=== PATIENT | male | born 1955 | race Two or more races ===

== ENCOUNTER 2018-02-09 14:32 | Inpatient (IN) | payer MEDICARE, OTHER ==
[~2018-02-09] VITALS: Ht 165.1 cm; Wt 81.0 kg
[2018-02-09] MEDS ORDERED: SODIUM CHLORIDE 0.9% 500 ML IVB ONE (14:43)
[2018-02-09] MEDS ORDERED: PANTOPRAZOLE 40 MG/10 ML VIAL IV STA (14:43)
[2018-02-09 16:20] LABS: Albumin 3.7 g/dL (3.4-5.0); BUN/Creatinine Ratio 11.3; Bilirubin, Total 2.4 mg/dL (0.2-1.0); Calcium 8.8 mg/dL (8.5-10.1); Magnesium 2.1 mg/dL (1.6-2.6); Potassium 3.5 mmol/L (3.5-5.1); Total Protein 7.4 g/dL (6.4-8.2)
[2018-02-09 17:35] LABS: Basophils # (auto) 0 uL; Basophils % (auto) 0.2 % (0.0-2.0); Eosinophils # (auto) 0 uL; Eosinophils % (auto) 0.3 % (0.0-7.0); Hematocrit 42.7 % (41.0-53.0); Hemoglobin 14.1 g/dL (13.5-17.5); Lymphocytes # (auto) 0.5 uL; Lymphocytes % (auto) 4.5 % (10.0-50.0); Mean Corpuscular Hemoglobin 28.8 pg (28.0-32.0); Mean Corpuscular Hgb Conc. 33.1 g/dL (32.0-36.0); Mean Corpuscular Volume 87.1 fL (80.0-100.0); Monocytes # (auto) 0.3 uL; Monocytes % (auto) 2.5 % (0.0-12.0); Neutrophils # (auto) 10.4 uL; Neutrophils % (auto) 92.5 % (37.0-80.0); Platelet Count (auto) 224 10^3/uL (140-450); Red Cell Distribution Width 15.4 % (11.8-14.3); White Blood Cell 11.2 10^3/uL (4.4-10.8)
[2018-02-09] MEDS ORDERED: ONDANSETRON HCL 4 MG/2 ML VIAL IV ONE (19:30)
[2018-02-09] MEDS ORDERED: HYDROmorphone HCL 2 MG/ML VL IV ONE (19:30)
[2018-02-09] MEDS ORDERED: D5W/SOD CHL 0.45% 1,000 ML IV ONE (19:45)
[2018-02-09] MEDS ORDERED: ONDANSETRON HCL 4 MG/2 ML VIAL IV SCH (20:00)
[2018-02-09] MEDS ORDERED: HYDROcodone-ACET 10/325MG TAB PO ONE (20:15)
[2018-02-09 21:30] VITALS: BP 128/71
[2018-02-09] MEDS ORDERED: DEXTROSE (50%) 50ML SYRG IV PRN (21:30)
[2018-02-09] MEDS: metFORMIN HYDROCHLORIDE 500 MG TAB PO SCH (22:47)
[2018-02-09] MEDS: MORPHINE SULF INJ 2 MG/ML SYRINGE 1ML IV PRN (22:50)
[2018-02-09 22:51] VITALS: BP 128/71
[2018-02-09] MEDS ORDERED: ASPI81TA27 PO (23:09)
[2018-02-09] MEDS ORDERED: METF-370 PO (23:09)
[2018-02-10] MEDS: ACCU-CHEK COMFORT CURVE STRIP VI SCH ×6 (00:10→20:00)
[2018-02-10] MEDS: InsuLIN REG 1unit/0.01ml Soln (100units/ml) SC SCH ×6 (00:11→20:00)
[2018-02-10] MEDS ORDERED: ONDANSETRON HCL 4 MG/2 ML VIAL IV PRN (02:00)
[2018-02-10 04:51] VITALS: BP 139/68
[2018-02-10 06:02] LABS: Basophils # (auto) 0 uL; Basophils % (auto) 0.3 % (0.0-2.0); Eosinophils # (auto) 0.2 uL; Eosinophils % (auto) 1.8 % (0.0-7.0); Hematocrit 38.9 % (41.0-53.0); Hemoglobin 13.2 g/dL (13.5-17.5); Lymphocytes # (auto) 1.1 uL; Lymphocytes % (auto) 10.5 % (10.0-50.0); Mean Corpuscular Hemoglobin 29.6 pg (28.0-32.0); Mean Corpuscular Hgb Conc. 33.9 g/dL (32.0-36.0); Mean Corpuscular Volume 87.4 fL (80.0-100.0); Monocytes # (auto) 0.6 uL; Monocytes % (auto) 6.3 % (0.0-12.0); Neutrophils # (auto) 8.2 uL; Neutrophils % (auto) 81.1 % (37.0-80.0); Nucleated Red Blood Cells % 0.1 %; Platelet Count (auto) 217 10^3/uL (140-450); Red Blood Cells 4.45 10^6/uL (4.5-5.90); Red Cell Distribution Width 15.2 % (11.8-14.3); White Blood Cell 10.1 10^3/uL (4.4-10.8)
[2018-02-10 06:15] LABS: Albumin 3.1 g/dL (3.4-5.0); BUN/Creatinine Ratio 12.2; Calcium 8.4 mg/dL (8.5-10.1); Potassium 3.8 mmol/L (3.5-5.1)
[2018-02-10 06:18] LABS: Bilirubin, Total 5.2 mg/dL (0.2-1.0)
[2018-02-10] MEDS: INSULIN LANTUS (GLARGINE) 1 /0.01ml (100units/ml) SC SCH (06:23)
[2018-02-10] MEDS: amLODIPine BESYLATE 5 MG TAB PO SCH (08:18)
[2018-02-10] MEDS: HCTZ 25 MG TAB PO SCH (08:19)
[2018-02-10] MEDS: metFORMIN HYDROCHLORIDE 500 MG TAB PO SCH ×2 (08:19→18:00)
[2018-02-10] MEDS: PANTOPRAZOLE 40 MG TAB PO SCH (08:20)
[2018-02-10 09:40] VITALS: BP 135/67
[2018-02-10] MEDS: LISINOPRIL 10 MG TAB PO SCH (10:00)
[2018-02-10 13:24] VITALS: BP 128/68
[2018-02-10 14:14] LABS: Hepatitis A Ab IgM Negative; Hepatitis B Core IgM Negative; Hepatitis B Surface Antigen Negative (Negative)
[2018-02-10 16:44] VITALS: BP 146/77
[2018-02-10 17:55] LABS: Hepatitis C Antibody Negative (Negative)
[2018-02-10 21:30] VITALS: BP 140/75
[2018-02-11] MEDS: ACCU-CHEK COMFORT CURVE STRIP VI SCH ×7 (00:18→23:32)
[2018-02-11] MEDS: InsuLIN REG 1unit/0.01ml Soln (100units/ml) SC SCH ×7 (00:19→23:33)
[2018-02-11] MEDS: MORPHINE SULF INJ 2 MG/ML SYRINGE 1ML IV PRN (04:31)
[2018-02-11 05:00] VITALS: BP 134/81
[2018-02-11] MEDS: INSULIN LANTUS (GLARGINE) 1 /0.01ml (100units/ml) SC SCH (06:48)
[2018-02-11 07:04] LABS: Potassium 3.4 mmol/L (3.5-5.1)
[2018-02-11 07:12] LABS: Albumin 3.3 g/dL (3.4-5.0); BUN/Creatinine Ratio 10.4; Bilirubin, Total 2.7 mg/dL (0.2-1.0); Calcium 8.9 mg/dL (8.5-10.1); Total Protein 7.6 g/dL (6.4-8.2)
[2018-02-11] MEDS: metFORMIN HYDROCHLORIDE 500 MG TAB PO SCH ×2 (08:00→18:00)
[2018-02-11] MEDS ORDERED: POTASSIUM CHL 10% (20 MEQ/15ML) 15ml ORAL SOLN PO ONE (08:45)
[2018-02-11 09:12] VITALS: BP 141/80
[2018-02-11] MEDS: amLODIPine BESYLATE 5 MG TAB PO SCH (10:00)
[2018-02-11] MEDS: PANTOPRAZOLE 40 MG TAB PO SCH (10:00)
[2018-02-11] MEDS: HCTZ 25 MG TAB PO SCH (10:00)
[2018-02-11] MEDS: LISINOPRIL 10 MG TAB PO SCH (10:00)
[2018-02-11 12:46] VITALS: BP 129/74
[2018-02-11] MEDS: HYDROcodone-ACET 10/325MG TAB PO PRN (15:37)
[2018-02-11 17:33] VITALS: BP 124/70
[2018-02-11 21:30] VITALS: BP 114/72
[2018-02-12] MEDS: ACCU-CHEK COMFORT CURVE STRIP VI SCH ×5 (04:16→20:01)
[2018-02-12] MEDS: InsuLIN REG 1unit/0.01ml Soln (100units/ml) SC SCH ×5 (04:16→20:02)
[2018-02-12 05:00] VITALS: BP 129/67
[2018-02-12] MEDS: INSULIN LANTUS (GLARGINE) 1 /0.01ml (100units/ml) SC SCH ×2 (05:51→12:55)
[2018-02-12 06:33] LABS: Potassium 3.7 mmol/L (3.5-5.1)
[2018-02-12 06:41] LABS: Albumin 3.2 g/dL (3.4-5.0); BUN/Creatinine Ratio 14.1; Calcium 8.8 mg/dL (8.5-10.1)
[2018-02-12 06:43] LABS: Bilirubin, Total 1.8 mg/dL (0.2-1.0); Total Protein 7.6 g/dL (6.4-8.2)
[2018-02-12] MEDS: metFORMIN HYDROCHLORIDE 500 MG TAB PO SCH ×2 (08:00→18:00)
[2018-02-12 09:00] VITALS: BP 138/75
[2018-02-12] MEDS: ENOXAPARIN SOD 40 MG/0.4 ML SYRINGE SC SCH (10:00)
[2018-02-12] MEDS: HCTZ 25 MG TAB PO SCH (12:51)
[2018-02-12] MEDS: PANTOPRAZOLE 40 MG TAB PO SCH (12:52)
[2018-02-12] MEDS: LISINOPRIL 10 MG TAB PO SCH (12:52)
[2018-02-12] MEDS: amLODIPine BESYLATE 5 MG TAB PO SCH (12:52)
[2018-02-12] MEDS: HYDROcodone-ACET 10/325MG TAB PO PRN ×2 (12:53→20:01)
[2018-02-12 13:00] VITALS: BP 129/77
[2018-02-12 17:44] VITALS: BP 116/74
[2018-02-12 22:00] VITALS: BP 120/75
[2018-02-13] MEDS: ACCU-CHEK COMFORT CURVE STRIP VI SCH ×6 (00:02→20:18)
[2018-02-13] MEDS: InsuLIN REG 1unit/0.01ml Soln (100units/ml) SC SCH ×6 (00:02→20:18)
[2018-02-13 05:00] VITALS: BP 121/73
[2018-02-13 06:42] LABS: Albumin 3.1 g/dL (3.4-5.0); Calcium 8.7 mg/dL (8.5-10.1); Potassium 3.9 mmol/L (3.5-5.1)
[2018-02-13 06:45] LABS: BUN/Creatinine Ratio 13.8
[2018-02-13 06:48] LABS: Bilirubin, Total 1.5 mg/dL (0.2-1.0); Total Protein 7.8 g/dL (6.4-8.2)
[2018-02-13] MEDS: metFORMIN HYDROCHLORIDE 500 MG TAB PO SCH ×2 (08:36→17:50)
[2018-02-13 09:00] VITALS: BP 122/66
[2018-02-13] MEDS: HCTZ 25 MG TAB PO SCH (10:37)
[2018-02-13] MEDS: amLODIPine BESYLATE 5 MG TAB PO SCH (10:38)
[2018-02-13] MEDS: LISINOPRIL 10 MG TAB PO SCH (10:39)
[2018-02-13] MEDS: PANTOPRAZOLE 40 MG TAB PO SCH (10:39)
[2018-02-13] MEDS: ENOXAPARIN SOD 40 MG/0.4 ML SYRINGE SC SCH (10:39)
[2018-02-13 12:56] VITALS: BP 127/71
[2018-02-13 13:40] LABS: INR 0.96 (0.9-1.15); Partial Thromboplastin Time 29.9 sec (23.78-33.04); Prothrombin Time 10.3 sec (9.27-12.13)
[2018-02-13 16:52] VITALS: BP 118/72
[2018-02-13 22:01] VITALS: BP 121/69
[2018-02-14] MEDS: ACCU-CHEK COMFORT CURVE STRIP VI SCH ×7 (00:06→23:31)
[2018-02-14] MEDS: InsuLIN REG 1unit/0.01ml Soln (100units/ml) SC SCH ×7 (00:06→23:31)
[2018-02-14 04:42] VITALS: BP 124/73
[2018-02-14] MEDS: INSULIN LANTUS (GLARGINE) 1 /0.01ml (100units/ml) SC SCH (06:24)
[2018-02-14] MEDS: metFORMIN HYDROCHLORIDE 500 MG TAB PO SCH ×2 (07:55→17:32)
[2018-02-14 09:00] VITALS: BP 130/75
[2018-02-14] MEDS: LISINOPRIL 10 MG TAB PO SCH (09:29)
[2018-02-14] MEDS: amLODIPine BESYLATE 5 MG TAB PO SCH (09:29)
[2018-02-14] MEDS: PANTOPRAZOLE 40 MG TAB PO SCH (09:30)
[2018-02-14] MEDS: HCTZ 25 MG TAB PO SCH (09:30)
[2018-02-14 13:00] VITALS: BP 124/71
[2018-02-14 17:00] VITALS: BP 139/80
[2018-02-14] MEDS: HYDROcodone-ACET 10/325MG TAB PO PRN (19:18)
[2018-02-14 21:52] VITALS: BP 125/68
[2018-02-15] MEDS: HYDROcodone-ACET 10/325MG TAB PO PRN ×2 (04:14→20:59)
[2018-02-15] MEDS: ACCU-CHEK COMFORT CURVE STRIP VI SCH ×5 (04:15→21:43)
[2018-02-15] MEDS: InsuLIN REG 1unit/0.01ml Soln (100units/ml) SC SCH ×5 (04:15→21:43)
[2018-02-15 04:49] VITALS: BP 123/71
[2018-02-15] MEDS: INSULIN LANTUS (GLARGINE) 1 /0.01ml (100units/ml) SC SCH (06:55)
[2018-02-15] MEDS: metFORMIN HYDROCHLORIDE 500 MG TAB PO SCH ×2 (07:43→18:33)
[2018-02-15] MEDS: amLODIPine BESYLATE 5 MG TAB PO SCH (09:06)
[2018-02-15] MEDS: LISINOPRIL 10 MG TAB PO SCH (09:07)
[2018-02-15] MEDS: HCTZ 25 MG TAB PO SCH (09:07)
[2018-02-15] MEDS: PANTOPRAZOLE 40 MG TAB PO SCH (09:08)
[2018-02-15 09:55] VITALS: BP 138/72
[2018-02-15 12:18] VITALS: BP 126/76
[2018-02-15 17:25] VITALS: BP 106/66
[2018-02-15 22:00] VITALS: BP 127/66
[2018-02-16] MEDS: ACCU-CHEK COMFORT CURVE STRIP VI SCH ×7 (01:08→23:17)
[2018-02-16] MEDS: HYDROcodone-ACET 10/325MG TAB PO PRN (01:09)
[2018-02-16] MEDS: InsuLIN REG 1unit/0.01ml Soln (100units/ml) SC SCH ×7 (04:00→23:16)
[2018-02-16 04:57] VITALS: BP 111/65
[2018-02-16] MEDS: INSULIN LANTUS (GLARGINE) 1 /0.01ml (100units/ml) SC SCH (05:29)
[2018-02-16 06:46] LABS: Basophils # (auto) 0 uL; Basophils % (auto) 0.6 % (0.0-2.0); Eosinophils # (auto) 0.4 uL; Eosinophils % (auto) 6.1 % (0.0-7.0); Hemoglobin 14.7 g/dL (13.5-17.5); Lymphocytes # (auto) 2.4 uL; Lymphocytes % (auto) 36.1 % (10.0-50.0); Mean Corpuscular Hemoglobin 29.3 pg (28.0-32.0); Mean Corpuscular Hgb Conc. 33.3 g/dL (32.0-36.0); Monocytes # (auto) 0.5 uL; Monocytes % (auto) 7.6 % (0.0-12.0); Neutrophils # (auto) 3.3 uL; Neutrophils % (auto) 49.6 % (37.0-80.0); Nucleated Red Blood Cells % 0.1 %; Platelet Count (auto) 340 10^3/uL (140-450); Red Cell Distribution Width 14.9 % (11.8-14.3); White Blood Cell 6.7 10^3/uL (4.4-10.8)
[2018-02-16 07:06] LABS: Potassium 3.7 mmol/L (3.5-5.1)
[2018-02-16 07:10] LABS: Albumin 3.4 g/dL (3.4-5.0); BUN/Creatinine Ratio 26.4; Calcium 8.6 mg/dL (8.5-10.1)
[2018-02-16 07:12] LABS: Total Protein 7.6 g/dL (6.4-8.2)
[2018-02-16] MEDS: metFORMIN HYDROCHLORIDE 500 MG TAB PO SCH ×2 (08:00→17:49)
[2018-02-16 08:56] VITALS: BP 123/71
[2018-02-16] MEDS: PANTOPRAZOLE 40 MG TAB PO SCH (10:00)
[2018-02-16] MEDS: amLODIPine BESYLATE 5 MG TAB PO SCH (10:00)
[2018-02-16] MEDS: HCTZ 25 MG TAB PO SCH (10:00)
[2018-02-16] MEDS: LISINOPRIL 10 MG TAB PO SCH (10:00)
[2018-02-16] MEDS ORDERED: MEPERIDINE HCL (50 MG/ML) 1 ML VIAL ONE (10:17)
[2018-02-16] MEDS ORDERED: MIDAZOLAM HCL 1MG/1ML-2 ML VIAL ONE (10:17)
[2018-02-16] MEDS ORDERED: fentaNYL CITRATE 100 MCG/2 ML VL ONE (10:17)
[2018-02-16] MEDS ORDERED: IOHEXOL 300 MG/ML 100ML BOTTLE IJ ONE (10:19)
[2018-02-16] MEDS ORDERED: SUCCINYLCHOLINE CHLORIDE 20 MG/ML 10ML VIAL IV ONE (10:19)
[2018-02-16] MEDS ORDERED: ONDANSETRON HCL 4 MG/2 ML VIAL IV ONE (10:45)
[2018-02-16] MEDS ORDERED: KETOROLAC TROMETH 30 MG/ML 1ML VIAL IV ONE (10:45)
[2018-02-16] MEDS ORDERED: ePHEDrine SULFATE 50 MG/ML AMP IV PRN (10:45)
[2018-02-16] MEDS ORDERED: LABETALOL HCL 5 MG/ML 4ML SYRINGE IV PRN (10:45)
[2018-02-16] MEDS ORDERED: HYDROmorphone HCL 2 MG/ML VL IV PRN (10:45)
[2018-02-16] MEDS ORDERED: MIDAZOLAM HCL 1MG/1ML-2 ML VIAL IV PRN (10:45)
[2018-02-16] MEDS ORDERED: MORPHINE SULFATE 8mg/ml INJ SDV IV PRN (10:45)
[2018-02-16] MEDS ORDERED: ETOMIDATE (2MG/ML) 20ML VIAL IV ONE (11:36)
[2018-02-16] MEDS ORDERED: DEXAMETHASONE SOD PHOS 10MG/1ML VIAL INJ ONE (11:36)
[2018-02-16] MEDS ORDERED: MORPHINE SULFATE 8mg/ml INJ SDV IV ONE (12:00)
[2018-02-16 17:53] VITALS: BP 125/70
[2018-02-16 22:00] VITALS: BP 130/77
[2018-02-17] MEDS: InsuLIN REG 1unit/0.01ml Soln (100units/ml) SC SCH ×5 (04:21→20:29)
[2018-02-17] MEDS: ACCU-CHEK COMFORT CURVE STRIP VI SCH ×5 (04:22→20:29)
[2018-02-17 05:00] VITALS: BP 133/73
[2018-02-17 05:46] LABS: Basophils # (auto) 0 uL; Basophils % (auto) 0.2 % (0.0-2.0); Eosinophils # (auto) 0 uL; Hematocrit 41.7 % (41.0-53.0); Hemoglobin 14.2 g/dL (13.5-17.5); Lymphocytes % (auto) 11.2 % (10.0-50.0); Mean Corpuscular Hemoglobin 29.6 pg (28.0-32.0); Mean Corpuscular Hgb Conc. 33.9 g/dL (32.0-36.0); Mean Corpuscular Volume 87.2 fL (80.0-100.0); Monocytes # (auto) 0.4 uL; Monocytes % (auto) 4.1 % (0.0-12.0); Neutrophils # (auto) 7.5 uL; Neutrophils % (auto) 84.5 % (37.0-80.0); Nucleated Red Blood Cells % 0.1 %; Platelet Count (auto) 363 10^3/uL (140-450); Red Blood Cells 4.78 10^6/uL (4.5-5.90); Red Cell Distribution Width 14.4 % (11.8-14.3); White Blood Cell 8.9 10^3/uL (4.4-10.8)
[2018-02-17 05:55] LABS: Albumin 3.2 g/dL (3.4-5.0); BUN/Creatinine Ratio 28.6; Calcium 8.2 mg/dL (8.5-10.1); Potassium 4.4 mmol/L (3.5-5.1)
[2018-02-17 05:56] LABS: INR 0.96 (0.9-1.15); Partial Thromboplastin Time 25.7 sec (23.78-33.04); Prothrombin Time 10.3 sec (9.27-12.13)
[2018-02-17 05:58] LABS: Bilirubin, Total 1.1 mg/dL (0.2-1.0); Total Protein 7.4 g/dL (6.4-8.2)
[2018-02-17] MEDS: INSULIN LANTUS (GLARGINE) 1 /0.01ml (100units/ml) SC SCH (06:27)
[2018-02-17 08:00] VITALS: BP 135/67
[2018-02-17] MEDS: metFORMIN HYDROCHLORIDE 500 MG TAB PO SCH ×2 (08:00→17:51)
[2018-02-17] MEDS: HCTZ 25 MG TAB PO SCH (08:19)
[2018-02-17] MEDS: PANTOPRAZOLE 40 MG TAB PO SCH (08:19)
[2018-02-17] MEDS: amLODIPine BESYLATE 5 MG TAB PO SCH (08:19)
[2018-02-17] MEDS: LISINOPRIL 10 MG TAB PO SCH (08:20)
[2018-02-17 12:00] VITALS: BP 119/60
[2018-02-17] MEDS ORDERED: ETOMIDATE (2MG/ML) 20ML VIAL IV ONE (12:34)
[2018-02-17] MEDS ORDERED: LIDOCAINE 1% (LOCAL ANESTH.) PF 5ml SDV ONE (12:39)
[2018-02-17] MEDS ORDERED: SUCCINYLCHOLINE CHLORIDE 20 MG/ML 10ML VIAL IV ONE (12:40)
[2018-02-17] MEDS ORDERED: ceFAZolin 1GM/50ML 50 ML IV ONE (13:28)
[2018-02-17] MEDS ORDERED: MIDAZOLAM HCL 1MG/1ML-2 ML VIAL ONE (13:54)
[2018-02-17] MEDS ORDERED: fentaNYL CITRATE 100 MCG/2 ML VL ONE ×2 (14:12→15:26)
[2018-02-17] MEDS ORDERED: ACCU-CHEK COMFORT CURVE STRIP VI ONE (14:15)
[2018-02-17] MEDS ORDERED: hydrALAZINE HCL 20 MG/ML VL IV PRN (14:15)
[2018-02-17] MEDS ORDERED: ONDANSETRON HCL 4 MG/2 ML VIAL IV ONE (14:15)
[2018-02-17] MEDS ORDERED: KETOROLAC TROMETH 30 MG/ML 1ML VIAL ONE (14:17)
[2018-02-17] MEDS ORDERED: GLYCOPYRROLATE 0.2 MG/ML 1ML VIAL ONE ×2 (14:37)
[2018-02-17] MEDS ORDERED: NEOSTIGMINE 1 MG/ML INJ (10mg/10ML VIAL) ONE (14:37)
[2018-02-17] MEDS: MORPHINE SULF INJ 2 MG/ML SYRINGE 1ML IV PRN (20:07)
[2018-02-17 22:00] VITALS: BP 119/74
[2018-02-18] MEDS: HYDROcodone-ACET 10/325MG TAB PO PRN ×2 (00:12→08:24)
[2018-02-18] MEDS: ACCU-CHEK COMFORT CURVE STRIP VI SCH ×6 (00:12→19:48)
[2018-02-18] MEDS: InsuLIN REG 1unit/0.01ml Soln (100units/ml) SC SCH ×6 (00:12→19:48)
[2018-02-18 05:01] VITALS: BP 119/71
[2018-02-18] MEDS: INSULIN LANTUS (GLARGINE) 1 /0.01ml (100units/ml) SC SCH (06:23)
[2018-02-18 06:54] LABS: Potassium 4.1 mmol/L (3.5-5.1)
[2018-02-18 07:11] LABS: Albumin 3.2 g/dL (3.4-5.0); BUN/Creatinine Ratio 26.5; Calcium 8.1 mg/dL (8.5-10.1)
[2018-02-18 07:14] LABS: Bilirubin, Total 1.4 mg/dL (0.2-1.0); Total Protein 7.3 g/dL (6.4-8.2)
[2018-02-18] MEDS: metFORMIN HYDROCHLORIDE 500 MG TAB PO SCH ×2 (08:23→16:51)
[2018-02-18 08:40] VITALS: BP 130/76
[2018-02-18] MEDS: ENOXAPARIN SOD 40 MG/0.4 ML SYRINGE SC SCH (09:57)
[2018-02-18] MEDS: HCTZ 25 MG TAB PO SCH (09:57)
[2018-02-18] MEDS: PANTOPRAZOLE 40 MG TAB PO SCH (09:58)
[2018-02-18] MEDS: LISINOPRIL 10 MG TAB PO SCH (09:58)
[2018-02-18] MEDS: amLODIPine BESYLATE 5 MG TAB PO SCH (09:59)
[2018-02-18] MEDS ORDERED: fentaNYL CITRATE 100 MCG/2 ML VL IV ONE (10:00)
[2018-02-18 13:00] VITALS: BP 132/80
[2018-02-18 17:00] VITALS: BP 135/75
[2018-02-18 22:00] VITALS: BP 133/76
[2018-02-19] MEDS: ACCU-CHEK COMFORT CURVE STRIP VI SCH ×6 (00:16→20:25)
[2018-02-19] MEDS: InsuLIN REG 1unit/0.01ml Soln (100units/ml) SC SCH ×6 (00:16→20:25)
[2018-02-19 05:30] VITALS: BP 124/70
[2018-02-19 06:35] LABS: Albumin 2.8 g/dL (3.4-5.0); BUN/Creatinine Ratio 24.1; Potassium 3.5 mmol/L (3.5-5.1)
[2018-02-19] MEDS: INSULIN LANTUS (GLARGINE) 1 /0.01ml (100units/ml) SC SCH (06:42)
[2018-02-19 06:45] LABS: Bilirubin, Total 1.6 mg/dL (0.2-1.0); Total Protein 6.8 g/dL (6.4-8.2)
[2018-02-19] MEDS: metFORMIN HYDROCHLORIDE 500 MG TAB PO SCH ×2 (08:26→17:38)
[2018-02-19] MEDS: LISINOPRIL 10 MG TAB PO SCH (10:00)
[2018-02-19] MEDS: amLODIPine BESYLATE 5 MG TAB PO SCH (10:07)
[2018-02-19] MEDS: PANTOPRAZOLE 40 MG TAB PO SCH (10:07)
[2018-02-19] MEDS: ENOXAPARIN SOD 40 MG/0.4 ML SYRINGE SC SCH (10:08)
[2018-02-19] MEDS: HCTZ 25 MG TAB PO SCH (10:09)
[2018-02-19 10:22] VITALS: BP 122/69
[2018-02-19 12:53] VITALS: BP 121/71
[2018-02-19] MEDS: HYDROcodone-ACET 10/325MG TAB PO PRN (13:34)
[2018-02-19 14:32] LABS: Basophils # (auto) 0 uL; Basophils % (auto) 0.2 % (0.0-2.0); Eosinophils # (auto) 0 uL; Hematocrit 38.6 % (41.0-53.0); Lymphocytes # (auto) 0.9 uL; Lymphocytes % (auto) 6.1 % (10.0-50.0); Mean Corpuscular Hemoglobin 29.3 pg (28.0-32.0); Mean Corpuscular Hgb Conc. 33.6 g/dL (32.0-36.0); Mean Corpuscular Volume 87.2 fL (80.0-100.0); Monocytes # (auto) 0.8 uL; Monocytes % (auto) 5.6 % (0.0-12.0); Neutrophils # (auto) 13.2 uL; Neutrophils % (auto) 88.1 % (37.0-80.0); Platelet Count (auto) 309 10^3/uL (140-450); Red Blood Cells 4.43 10^6/uL (4.5-5.90); Red Cell Distribution Width 14.9 % (11.8-14.3)
[2018-02-19] MEDS: LEVOFLOXACIN 500MG 100 ML IV SCH (15:38)
[2018-02-19] MEDS: metroNIDAZOLE 500MG/100ML 100 ML IV SCH (17:37)
[2018-02-19 22:00] VITALS: BP 125/79
[2018-02-20] MEDS: ACCU-CHEK COMFORT CURVE STRIP VI SCH ×7 (00:21→23:56)
[2018-02-20] MEDS: metroNIDAZOLE 500MG/100ML 100 ML IV SCH ×4 (00:21→23:48)
[2018-02-20] MEDS: InsuLIN REG 1unit/0.01ml Soln (100units/ml) SC SCH ×6 (00:21→20:24)
[2018-02-20 05:30] VITALS: BP 128/71
[2018-02-20] MEDS: INSULIN LANTUS (GLARGINE) 1 /0.01ml (100units/ml) SC SCH (06:44)
[2018-02-20] MEDS: metFORMIN HYDROCHLORIDE 500 MG TAB PO SCH ×2 (07:34→18:00)
[2018-02-20 07:49] LABS: Basophils # (auto) 0 uL; Basophils % (auto) 0.2 % (0.0-2.0); Eosinophils # (auto) 0.1 uL; Eosinophils % (auto) 0.6 % (0.0-7.0); Hematocrit 36.1 % (41.0-53.0); Hemoglobin 12.4 g/dL (13.5-17.5); Lymphocytes # (auto) 1.2 uL; Lymphocytes % (auto) 10.2 % (10.0-50.0); Mean Corpuscular Hemoglobin 29.8 pg (28.0-32.0); Mean Corpuscular Hgb Conc. 34.3 g/dL (32.0-36.0); Mean Corpuscular Volume 87.1 fL (80.0-100.0); Monocytes # (auto) 0.7 uL; Monocytes % (auto) 6.4 % (0.0-12.0); Neutrophils # (auto) 9.5 uL; Neutrophils % (auto) 82.6 % (37.0-80.0); Nucleated Red Blood Cells % 0.1 %; Platelet Count (auto) 296 10^3/uL (140-450); Red Blood Cells 4.14 10^6/uL (4.5-5.90); Red Cell Distribution Width 14.6 % (11.8-14.3); White Blood Cell 11.5 10^3/uL (4.4-10.8)
[2018-02-20 08:00] VITALS: BP 121/69
[2018-02-20 08:08] LABS: Albumin 2.5 g/dL (3.4-5.0); BUN/Creatinine Ratio 33.9; Bilirubin, Total 1.3 mg/dL (0.2-1.0); Calcium 8.1 mg/dL (8.5-10.1); Potassium 3.2 mmol/L (3.5-5.1); Total Protein 6.6 g/dL (6.4-8.2)
[2018-02-20] MEDS: amLODIPine BESYLATE 5 MG TAB PO SCH (09:40)
[2018-02-20] MEDS: PANTOPRAZOLE 40 MG TAB PO SCH (09:40)
[2018-02-20] MEDS: LEVOFLOXACIN 500MG 100 ML IV SCH (09:41)
[2018-02-20] MEDS: HCTZ 25 MG TAB PO SCH (09:41)
[2018-02-20] MEDS: LISINOPRIL 10 MG TAB PO SCH (09:42)
[2018-02-20] MEDS: ENOXAPARIN SOD 40 MG/0.4 ML SYRINGE SC SCH (09:42)
[2018-02-20] MEDS ORDERED: POTASSIUM CHL 20 Meq TABLET PO ONE ×2 (10:00→12:00)
[2018-02-20 13:06] VITALS: BP 131/75
[2018-02-20 17:40] VITALS: BP 124/74
[2018-02-20 21:42] VITALS: BP 146/80
[2018-02-20] MEDS: DOCUSATE SOD 100 MG CAP PO SCH (22:18)
[2018-02-21] MEDS: InsuLIN REG 1unit/0.01ml Soln (100units/ml) SC SCH ×7 (00:02→23:39)
[2018-02-21] MEDS: ACCU-CHEK COMFORT CURVE STRIP VI SCH ×6 (04:07→23:40)
[2018-02-21 05:02] VITALS: BP 132/73
[2018-02-21] MEDS: INSULIN LANTUS (GLARGINE) 1 /0.01ml (100units/ml) SC SCH (06:36)
[2018-02-21 07:38] VITALS: BP 132/79
[2018-02-21 08:27] LABS: Albumin 2.4 g/dL (3.4-5.0); BUN/Creatinine Ratio 23.1; Bilirubin, Total 1.2 mg/dL (0.2-1.0); Calcium 8.1 mg/dL (8.5-10.1); Potassium 3.5 mmol/L (3.5-5.1); Total Protein 6.5 g/dL (6.4-8.2)
[2018-02-21] MEDS: metroNIDAZOLE 500MG/100ML 100 ML IV SCH ×3 (08:28→23:35)
[2018-02-21] MEDS: ENOXAPARIN SOD 40 MG/0.4 ML SYRINGE SC SCH (08:28)
[2018-02-21] MEDS: LEVOFLOXACIN 500MG 100 ML IV SCH (08:28)
[2018-02-21] MEDS: DOCUSATE SOD 100 MG CAP PO SCH ×2 (08:29→21:38)
[2018-02-21] MEDS: PANTOPRAZOLE 40 MG TAB PO SCH (08:29)
[2018-02-21] MEDS: metFORMIN HYDROCHLORIDE 500 MG TAB PO SCH ×2 (08:29→18:00)
[2018-02-21] MEDS: LISINOPRIL 10 MG TAB PO SCH (08:29)
[2018-02-21] MEDS: amLODIPine BESYLATE 5 MG TAB PO SCH (08:30)
[2018-02-21] MEDS: HCTZ 25 MG TAB PO SCH (08:30)
[2018-02-21 12:31] VITALS: BP 131/72
[2018-02-21 16:50] VITALS: BP 140/77
[2018-02-21] MEDS: HYDROcodone-ACET 10/325MG TAB PO PRN (19:53)
[2018-02-21 22:00] VITALS: BP 135/71
[2018-02-21 22:08] VITALS: BP 136/71
[2018-02-22] MEDS: InsuLIN REG 1unit/0.01ml Soln (100units/ml) SC SCH ×5 (03:53→19:55)
[2018-02-22] MEDS: ACCU-CHEK COMFORT CURVE STRIP VI SCH ×5 (03:54→19:55)
[2018-02-22 05:00] VITALS: BP 131/79
[2018-02-22] MEDS: INSULIN LANTUS (GLARGINE) 1 /0.01ml (100units/ml) SC SCH (06:28)
[2018-02-22 08:00] VITALS: BP 127/74
[2018-02-22] MEDS: metFORMIN HYDROCHLORIDE 500 MG TAB PO SCH ×2 (08:18→17:37)
[2018-02-22] MEDS: metroNIDAZOLE 500MG/100ML 100 ML IV SCH ×2 (08:18→16:14)
[2018-02-22] MEDS: LISINOPRIL 10 MG TAB PO SCH (10:00)
[2018-02-22] MEDS: LEVOFLOXACIN 500MG 100 ML IV SCH (10:01)
[2018-02-22] MEDS: ENOXAPARIN SOD 40 MG/0.4 ML SYRINGE SC SCH (10:01)
[2018-02-22] MEDS: amLODIPine BESYLATE 5 MG TAB PO SCH (10:02)
[2018-02-22] MEDS: DOCUSATE SOD 100 MG CAP PO SCH ×2 (10:02→21:50)
[2018-02-22] MEDS: PANTOPRAZOLE 40 MG TAB PO SCH (10:03)
[2018-02-22] MEDS: HCTZ 25 MG TAB PO SCH (10:03)
[2018-02-22 12:00] VITALS: BP 135/75
[2018-02-22 16:00] VITALS: BP 134/72
[2018-02-22 21:58] VITALS: BP 121/71
[2018-02-23] MEDS: metroNIDAZOLE 500MG/100ML 100 ML IV SCH ×4 (00:20→23:56)
[2018-02-23] MEDS: ACCU-CHEK COMFORT CURVE STRIP VI SCH ×6 (00:28→20:00)
[2018-02-23] MEDS: InsuLIN REG 1unit/0.01ml Soln (100units/ml) SC SCH ×6 (00:28→20:00)
[2018-02-23 05:07] VITALS: BP 124/72
[2018-02-23] MEDS: INSULIN LANTUS (GLARGINE) 1 /0.01ml (100units/ml) SC SCH (06:32)
[2018-02-23] MEDS: metFORMIN HYDROCHLORIDE 500 MG TAB PO SCH ×2 (07:54→16:39)
[2018-02-23 08:23] VITALS: BP 133/70
[2018-02-23] MEDS: LISINOPRIL 10 MG TAB PO SCH (10:04)
[2018-02-23] MEDS: ENOXAPARIN SOD 40 MG/0.4 ML SYRINGE SC SCH (10:04)
[2018-02-23] MEDS: amLODIPine BESYLATE 5 MG TAB PO SCH (10:05)
[2018-02-23] MEDS: PANTOPRAZOLE 40 MG TAB PO SCH (10:06)
[2018-02-23] MEDS: DOCUSATE SOD 100 MG CAP PO SCH ×2 (10:06→22:10)
[2018-02-23] MEDS: HCTZ 25 MG TAB PO SCH (10:06)
[2018-02-23] MEDS: LEVOFLOXACIN 500MG 100 ML IV SCH (10:07)
[2018-02-23 12:26] VITALS: BP 130/71
[2018-02-23 16:48] VITALS: BP 127/67
[2018-02-23 22:00] VITALS: BP 120/67
[2018-02-24] MEDS: ACCU-CHEK COMFORT CURVE STRIP VI SCH ×6 (00:41→20:10)
[2018-02-24] MEDS: InsuLIN REG 1unit/0.01ml Soln (100units/ml) SC SCH ×6 (04:00→20:17)
[2018-02-24 05:55] VITALS: BP 122/67
[2018-02-24] MEDS: INSULIN LANTUS (GLARGINE) 1 /0.01ml (100units/ml) SC SCH (06:23)
[2018-02-24 09:00] VITALS: BP 110/64
[2018-02-24] MEDS: metFORMIN HYDROCHLORIDE 500 MG TAB PO SCH ×2 (09:30→17:30)
[2018-02-24] MEDS: PANTOPRAZOLE 40 MG TAB PO SCH (09:30)
[2018-02-24] MEDS: DOCUSATE SOD 100 MG CAP PO SCH ×2 (09:30→21:56)
[2018-02-24] MEDS: LISINOPRIL 10 MG TAB PO SCH (09:30)
[2018-02-24] MEDS: ENOXAPARIN SOD 40 MG/0.4 ML SYRINGE SC SCH (09:30)
[2018-02-24] MEDS: amLODIPine BESYLATE 5 MG TAB PO SCH (09:30)
[2018-02-24] MEDS: metroNIDAZOLE 500MG/100ML 100 ML IV SCH ×2 (09:30→16:18)
[2018-02-24] MEDS: HCTZ 25 MG TAB PO SCH (09:30)
[2018-02-24] MEDS: LEVOFLOXACIN 500MG 100 ML IV SCH (12:20)
[2018-02-24 13:00] VITALS: BP 118/66
[2018-02-24] MEDS: HYDROcodone-ACET 10/325MG TAB PO PRN (16:45)
[2018-02-24 17:24] VITALS: BP 114/65
[2018-02-24 21:51] VITALS: BP 123/71
[2018-02-25] MEDS: metroNIDAZOLE 500MG/100ML 100 ML IV SCH ×3 (00:15→15:56)
[2018-02-25] MEDS: ACCU-CHEK COMFORT CURVE STRIP VI SCH ×6 (00:27→20:26)
[2018-02-25] MEDS: InsuLIN REG 1unit/0.01ml Soln (100units/ml) SC SCH ×6 (04:34→20:37)
[2018-02-25 05:00] VITALS: BP 122/69
[2018-02-25] MEDS: INSULIN LANTUS (GLARGINE) 1 /0.01ml (100units/ml) SC SCH (07:19)
[2018-02-25 08:19] VITALS: BP 122/75
[2018-02-25] MEDS: metFORMIN HYDROCHLORIDE 500 MG TAB PO SCH ×2 (08:24→18:19)
[2018-02-25] MEDS: DOCUSATE SOD 100 MG CAP PO SCH ×2 (08:59→22:27)
[2018-02-25] MEDS: ENOXAPARIN SOD 40 MG/0.4 ML SYRINGE SC SCH (08:59)
[2018-02-25] MEDS: PANTOPRAZOLE 40 MG TAB PO SCH (09:00)
[2018-02-25] MEDS: amLODIPine BESYLATE 5 MG TAB PO SCH (09:00)
[2018-02-25] MEDS: LISINOPRIL 10 MG TAB PO SCH (09:01)
[2018-02-25] MEDS: HCTZ 25 MG TAB PO SCH (09:01)
[2018-02-25] MEDS ORDERED: LEVOFLOXACIN 500MG 100 ML IV SCH (09:04)
[2018-02-25] MEDS: VANCOMYCIN 1GM/250ML 250 ML IV SCH ×2 (10:07→22:27)
[2018-02-25 12:55] VITALS: BP 120/66
[2018-02-25 16:57] VITALS: BP 121/63
[2018-02-25 22:00] VITALS: BP 117/64
[2018-02-26] MEDS: metroNIDAZOLE 500MG/100ML 100 ML IV SCH ×3 (00:10→16:27)
[2018-02-26] MEDS: InsuLIN REG 1unit/0.01ml Soln (100units/ml) SC SCH ×6 (00:37→20:51)
[2018-02-26] MEDS: ACCU-CHEK COMFORT CURVE STRIP VI SCH ×6 (04:00→20:46)
[2018-02-26 05:13] VITALS: BP 114/64
[2018-02-26] MEDS: INSULIN LANTUS (GLARGINE) 1 /0.01ml (100units/ml) SC SCH (06:45)
[2018-02-26 06:47] LABS: Hematocrit 38.3 % (41.0-53.0); Hemoglobin 13.1 g/dL (13.5-17.5); Mean Corpuscular Hemoglobin 29.9 pg (28.0-32.0); Mean Corpuscular Hgb Conc. 34.2 g/dL (32.0-36.0); Mean Corpuscular Volume 87.4 fL (80.0-100.0); Platelet Count (auto) 448 10^3/uL (140-450); Red Blood Cells 4.38 10^6/uL (4.5-5.90); Red Cell Distribution Width 14.7 % (11.8-14.3); White Blood Cell 9.7 10^3/uL (4.4-10.8)
[2018-02-26 07:10] LABS: Band Neutrophils % (manual) 0; Basophils % (manual) 0 (0.0-2.0); Blast Cells 0; Metamyelocytes % 0; Myelocytes % 0; Promyelocytes % 0; Reactive Lymphocytes 0
[2018-02-26 07:13] LABS: Albumin 2.4 g/dL (3.4-5.0); BUN/Creatinine Ratio 14.5; Bilirubin, Total 0.6 mg/dL (0.2-1.0); Total Protein 6.5 g/dL (6.4-8.2)
[2018-02-26 07:15] LABS: Potassium 2.8 mmol/L (3.5-5.1)
[2018-02-26 07:42] LABS: Eosinophils % (manual) 1 (0-7); Lymphocytes % (manual) 10 (10.0-50.0); Monocytes % (manual) 3 (0-12)
[2018-02-26 07:50] VITALS: BP 115/64
[2018-02-26] MEDS: metFORMIN HYDROCHLORIDE 500 MG TAB PO SCH ×2 (08:24→18:02)
[2018-02-26] MEDS: POTASSIUM CHL 20 Meq TABLET PO SCH ×3 (08:25→11:25)
[2018-02-26] MEDS: VANCOMYCIN 1GM/250ML 250 ML IV SCH ×2 (10:32→21:41)
[2018-02-26] MEDS: DOCUSATE SOD 100 MG CAP PO SCH ×2 (10:33→21:42)
[2018-02-26] MEDS: PANTOPRAZOLE 40 MG TAB PO SCH (10:33)
[2018-02-26] MEDS: ENOXAPARIN SOD 40 MG/0.4 ML SYRINGE SC SCH (10:33)
[2018-02-26] MEDS: LISINOPRIL 10 MG TAB PO SCH (10:34)
[2018-02-26] MEDS: HCTZ 25 MG TAB PO SCH (10:35)
[2018-02-26] MEDS: amLODIPine BESYLATE 5 MG TAB PO SCH (10:35)
[2018-02-26] MEDS: LEVOFLOXACIN 500MG 100 ML IV SCH (11:25)
[2018-02-26 12:10] VITALS: BP 101/62
[2018-02-26 16:39] VITALS: BP 101/58
[2018-02-26 21:51] VITALS: BP 106/60
[2018-02-27] MEDS: metroNIDAZOLE 500MG/100ML 100 ML IV SCH ×3 (00:29→16:14)
[2018-02-27] MEDS: ACCU-CHEK COMFORT CURVE STRIP VI SCH ×6 (00:33→20:03)
[2018-02-27] MEDS: InsuLIN REG 1unit/0.01ml Soln (100units/ml) SC SCH ×6 (04:00→20:00)
[2018-02-27 05:12] VITALS: BP 118/65
[2018-02-27] MEDS: INSULIN LANTUS (GLARGINE) 1 /0.01ml (100units/ml) SC SCH (06:38)
[2018-02-27] MEDS: metFORMIN HYDROCHLORIDE 500 MG TAB PO SCH ×2 (08:12→18:00)
[2018-02-27 09:00] VITALS: BP 109/68
[2018-02-27] MEDS: ENOXAPARIN SOD 40 MG/0.4 ML SYRINGE SC SCH (10:00)
[2018-02-27] MEDS ORDERED: VANCOMYCIN PER PHARMACY 0 MG IV SCH (10:00)
[2018-02-27 10:17] LABS: Eosinophils # (auto) 0.2 uL; Red Cell Distribution Width 14.7 % (11.8-14.3)
[2018-02-27 10:19] LABS: Basophils # (auto) 0 uL; Basophils % (auto) 0.4 % (0.0-2.0); Hematocrit 38.6 % (41.0-53.0); Hemoglobin 13.2 g/dL (13.5-17.5); Lymphocytes # (auto) 1.4 uL; Lymphocytes % (auto) 13.3 % (10.0-50.0); Mean Corpuscular Hemoglobin 29.9 pg (28.0-32.0); Mean Corpuscular Hgb Conc. 34.3 g/dL (32.0-36.0); Monocytes # (auto) 0.6 uL; Monocytes % (auto) 5.7 % (0.0-12.0); Neutrophils # (auto) 8.4 uL; Neutrophils % (auto) 78.6 % (37.0-80.0); Nucleated Red Blood Cells % 0.1 %; Platelet Count (auto) 482 10^3/uL (140-450); Red Blood Cells 4.44 10^6/uL (4.5-5.90); White Blood Cell 10.7 10^3/uL (4.4-10.8)
[2018-02-27] MEDS: LEVOFLOXACIN 500MG 100 ML IV SCH (10:29)
[2018-02-27] MEDS: DOCUSATE SOD 100 MG CAP PO SCH ×2 (10:30→22:12)
[2018-02-27] MEDS: PANTOPRAZOLE 40 MG TAB PO SCH (10:30)
[2018-02-27 10:31] LABS: BUN/Creatinine Ratio 11.6; Potassium 3.8 mmol/L (3.5-5.1)
[2018-02-27] MEDS: HCTZ 25 MG TAB PO SCH (10:31)
[2018-02-27] MEDS: LISINOPRIL 10 MG TAB PO SCH (10:31)
[2018-02-27 10:32] LABS: INR 1.05 (0.9-1.15); Partial Thromboplastin Time 27.9 sec (23.78-33.04); Prothrombin Time 11.2 sec (9.27-12.13)
[2018-02-27] MEDS: amLODIPine BESYLATE 5 MG TAB PO SCH (10:32)
[2018-02-27] MEDS: VANCOMYCIN 1GM/250ML 250 ML IV SCH ×2 (11:14→18:52)
[2018-02-27] MEDS ORDERED: SOD CHL 0.45% WITH 20MEQ KCL 1,000 ML IV SCH (12:00)
[2018-02-27 12:49] VITALS: BP 117/67
[2018-02-27] MEDS: SOD CHL 0.45% WITH 20MEQ KCL 1,000 ML IV SCH ×2 (12:49→21:15)
[2018-02-27] MEDS ORDERED: POTASSIUM CHL 20 Meq TABLET PO ONE (16:45)
[2018-02-27] MEDS ORDERED: FUROSEMIDE 20 MG/2 ML VIAL IV ONE (16:45)
[2018-02-27 17:00] VITALS: BP 115/66
[2018-02-27 21:30] VITALS: BP 121/65
[2018-02-28] MEDS: ACCU-CHEK COMFORT CURVE STRIP VI SCH ×6 (00:04→20:10)
[2018-02-28] MEDS: metroNIDAZOLE 500MG/100ML 100 ML IV SCH ×3 (00:04→15:59)
[2018-02-28] MEDS: VANCOMYCIN 1GM/250ML 250 ML IV SCH ×3 (03:21→18:45)
[2018-02-28 05:00] VITALS: BP 113/67
[2018-02-28] MEDS: SOD CHL 0.45% WITH 20MEQ KCL 1,000 ML IV SCH ×3 (05:08→21:33)
[2018-02-28 06:16] LABS: Hematocrit 37.5 % (41.0-53.0); Hemoglobin 12.9 g/dL (13.5-17.5); Mean Corpuscular Hemoglobin 30.1 pg (28.0-32.0); Mean Corpuscular Hgb Conc. 34.4 g/dL (32.0-36.0); Mean Corpuscular Volume 87.3 fL (80.0-100.0); Platelet Count (auto) 440 10^3/uL (140-450); Red Cell Distribution Width 14.8 % (11.8-14.3); White Blood Cell 9.7 10^3/uL (4.4-10.8)
[2018-02-28 06:20] LABS: Basophils % (manual) 0 (0.0-2.0); Blast Cells 0; Metamyelocytes % 0; Myelocytes % 0; Promyelocytes % 0; Reactive Lymphocytes 0
[2018-02-28 06:29] LABS: Albumin 2.5 g/dL (3.4-5.0); BUN/Creatinine Ratio 9.5; Bilirubin, Total 0.9 mg/dL (0.2-1.0); Potassium 3.6 mmol/L (3.5-5.1); Total Protein 6.3 g/dL (6.4-8.2)
[2018-02-28] MEDS: INSULIN LANTUS (GLARGINE) 1 /0.01ml (100units/ml) SC SCH (06:56)
[2018-02-28 07:33] LABS: Band Neutrophils % (manual) 1; Eosinophils % (manual) 3 (0-7); Lymphocytes % (manual) 24 (10.0-50.0); Monocytes % (manual) 7 (0-12)
[2018-02-28 08:49] VITALS: BP 115/71
[2018-02-28] MEDS ORDERED: ENOXAPARIN SOD 40 MG/0.4 ML SYRINGE SC SCH (10:00)
[2018-02-28] MEDS: PANTOPRAZOLE 40 MG TAB PO SCH (10:31)
[2018-02-28] MEDS: HCTZ 25 MG TAB PO SCH (10:32)
[2018-02-28] MEDS: amLODIPine BESYLATE 5 MG TAB PO SCH (10:32)
[2018-02-28] MEDS: DOCUSATE SOD 100 MG CAP PO SCH ×2 (10:32→21:32)
[2018-02-28] MEDS: LISINOPRIL 10 MG TAB PO SCH (10:33)
[2018-02-28] MEDS: LEVOFLOXACIN 500MG 100 ML IV SCH (12:55)
[2018-02-28 13:00] VITALS: BP_SYST 111; BP_SYST 115; BP_DIAS 66; BP_DIAS 71
[2018-02-28] MEDS ORDERED: ONDANSETRON HCL 4 MG/2 ML VIAL IV PRN (13:30)
[2018-02-28] MEDS ORDERED: DEXTROSE (50%) 50ML SYRG IV PRN (13:30)
[2018-02-28] MEDS: InsuLIN REG 1unit/0.01ml Soln (100units/ml) SC SCH ×3 (16:00→20:11)
[2018-02-28 17:00] VITALS: BP 114/67
[2018-02-28 21:51] VITALS: BP 118/73
[2018-03-01] MEDS: metroNIDAZOLE 500MG/100ML 100 ML IV SCH ×3 (00:10→16:14)
[2018-03-01] MEDS: ACCU-CHEK COMFORT CURVE STRIP VI SCH ×12 (00:14→20:06)
[2018-03-01] MEDS: VANCOMYCIN 1GM/250ML 250 ML IV SCH ×2 (03:16→15:26)
[2018-03-01] MEDS: InsuLIN REG 1unit/0.01ml Soln (100units/ml) SC SCH ×6 (04:16→20:18)
[2018-03-01] MEDS: SOD CHL 0.45% WITH 20MEQ KCL 1,000 ML IV SCH (04:57)
[2018-03-01 05:00] VITALS: BP 120/65
[2018-03-01 06:52] LABS: Hematocrit 32.8 % (41.0-53.0); Hemoglobin 11.3 g/dL (13.5-17.5); Mean Corpuscular Hemoglobin 30.2 pg (28.0-32.0); Mean Corpuscular Hgb Conc. 34.3 g/dL (32.0-36.0); Mean Corpuscular Volume 88.1 fL (80.0-100.0); Platelet Count (auto) 398 10^3/uL (140-450); Red Blood Cells 3.73 10^6/uL (4.5-5.90); Red Cell Distribution Width 14.8 % (11.8-14.3); White Blood Cell 8.6 10^3/uL (4.4-10.8)
[2018-03-01 06:54] LABS: Band Neutrophils % (manual) 0; Basophils % (manual) 0 (0.0-2.0); Blast Cells 0; Metamyelocytes % 0; Myelocytes % 0; Promyelocytes % 0; Reactive Lymphocytes 0
[2018-03-01] MEDS: INSULIN LANTUS (GLARGINE) 1 /0.01ml (100units/ml) SC SCH (07:00)
[2018-03-01 07:02] LABS: BUN/Creatinine Ratio 8.1; Potassium 5.6 mmol/L (3.5-5.1)
[2018-03-01 07:54] LABS: Eosinophils % (manual) 5 (0-7); Lymphocytes % (manual) 20 (10.0-50.0); Monocytes % (manual) 2 (0-12)
[2018-03-01] MEDS: SODIUM CHLORIDE 0.9% 1,000 ML IV SCH ×2 (07:58→16:13)
[2018-03-01 09:58] VITALS: BP 120/69
[2018-03-01] MEDS ORDERED: IOHEXOL 300 MG/ML 75ml BOTTLE IJ ONE (10:15)
[2018-03-01] MEDS: PANTOPRAZOLE 40 MG TAB PO SCH (10:35)
[2018-03-01] MEDS: DOCUSATE SOD 100 MG CAP PO SCH ×2 (10:36→21:37)
[2018-03-01] MEDS: LISINOPRIL 10 MG TAB PO SCH (10:36)
[2018-03-01] MEDS: amLODIPine BESYLATE 5 MG TAB PO SCH (10:37)
[2018-03-01] MEDS: HCTZ 25 MG TAB PO SCH (10:37)
[2018-03-01] MEDS: LEVOFLOXACIN 500MG 100 ML IV SCH (12:37)
[2018-03-01 14:14] VITALS: BP 113/65
[2018-03-01 17:24] VITALS: BP 112/67
[2018-03-01] MEDS: SOD CHL 0.45% 1,000 ML IV SCH (20:04)
[2018-03-01 22:00] VITALS: BP 113/69
[2018-03-02] MEDS: metroNIDAZOLE 500MG/100ML 100 ML IV SCH ×2 (00:12→08:09)
[2018-03-02] MEDS: ACCU-CHEK COMFORT CURVE STRIP VI SCH ×8 (00:13→11:58)
[2018-03-02] MEDS: VANCOMYCIN 1GM/250ML 250 ML IV SCH (03:14)
[2018-03-02] MEDS: InsuLIN REG 1unit/0.01ml Soln (100units/ml) SC SCH ×4 (03:19→11:58)
[2018-03-02 05:19] VITALS: BP 122/61
[2018-03-02] MEDS: SOD CHL 0.45% 1,000 ML IV SCH ×2 (06:34→11:01)
[2018-03-02] MEDS: INSULIN LANTUS (GLARGINE) 1 /0.01ml (100units/ml) SC SCH (06:43)
[2018-03-02 07:15] LABS: Basophils # (auto) 0.1 uL; Eosinophils # (auto) 0.4 uL; Hemoglobin 12.8 g/dL (13.5-17.5); Mean Corpuscular Hgb Conc. 33.9 g/dL (32.0-36.0); Monocytes # (auto) 0.7 uL
[2018-03-02 07:18] LABS: Basophils % (auto) 0.8 % (0.0-2.0); Eosinophils % (auto) 3.9 % (0.0-7.0); Hematocrit 37.6 % (41.0-53.0); Lymphocytes # (auto) 1.3 uL; Lymphocytes % (auto) 12.4 % (10.0-50.0); Mean Corpuscular Hemoglobin 29.9 pg (28.0-32.0); Mean Corpuscular Volume 88.2 fL (80.0-100.0); Monocytes % (auto) 6.5 % (0.0-12.0); Neutrophils # (auto) 7.8 uL; Neutrophils % (auto) 76.4 % (37.0-80.0); Platelet Count (auto) 447 10^3/uL (140-450); Red Blood Cells 4.27 10^6/uL (4.5-5.90); Red Cell Distribution Width 14.8 % (11.8-14.3); White Blood Cell 10.2 10^3/uL (4.4-10.8)
[2018-03-02 07:34] LABS: Calcium 7.9 mg/dL (8.5-10.1); Potassium 3.4 mmol/L (3.5-5.1)
[2018-03-02 07:37] LABS: BUN/Creatinine Ratio 5.6
[2018-03-02 09:00] VITALS: BP 122/69
[2018-03-02] MEDS: PANTOPRAZOLE 40 MG TAB PO SCH (09:56)
[2018-03-02] MEDS: HCTZ 25 MG TAB PO SCH (09:56)
[2018-03-02] MEDS: amLODIPine BESYLATE 5 MG TAB PO SCH (09:56)
[2018-03-02] MEDS: LISINOPRIL 10 MG TAB PO SCH (09:57)
[2018-03-02] MEDS: DOCUSATE SOD 100 MG CAP PO SCH (09:58)
[2018-03-02] MEDS ORDERED: ENOXAPARIN SOD 40 MG/0.4 ML SYRINGE SC SCH (10:00)
[2018-03-02] MEDS: LEVOFLOXACIN 500MG 100 ML IV SCH (12:57)
[2018-03-02 13:00] VITALS: BP 122/71
[2018-03-03] MEDS ORDERED: metFORMIN HYDROCHLORIDE 500 MG TAB PO SCH (08:00)
== END 2018-03-02 17:55 | DRG 418 ==
LOC: ER 14:32 → EEVIPCON 14:32 → EDBD 14:32 → EEVIPCON 14:33 → OVERFLOW 14:33 → EAST 21:25
PROVIDERS: ADMIT Internal Medicine; ATTEND Internal Medicine
PROC: 0FPD8DZ Removal of Intraluminal Device from Pancreatic Duct, Via Natural or Artificial Opening Endoscopic (ICD-10-PCS; 2018-02-16)
PROC: 0F798DZ Dilation of Common Bile Duct with Intraluminal Device, Via Natural or Artificial Opening Endoscopic (ICD-10-PCS; 2018-02-16)
PROC: BF111ZZ Fluoroscopy of Biliary and Pancreatic Ducts using Low Osmolar Contrast (ICD-10-PCS; 2018-02-16)
PROC: BF111ZZ Fluoroscopy of Biliary and Pancreatic Ducts using Low Osmolar Contrast (ICD-10-PCS; 2018-02-16)
PROC: 0FC98ZZ Extirpation of Matter from Common Bile Duct, Via Natural or Artificial Opening Endoscopic (ICD-10-PCS; principal; 2018-02-16 11:00)
PROC: 0FT44ZZ Resection of Gallbladder, Percutaneous Endoscopic Approach (ICD-10-PCS; 2018-02-17)
DX: K80.65 Calculus of gallbladder and bile duct with chronic cholecystitis with obstruction (principal); K35.80 Unspecified acute appendicitis; K63.0 Abscess of intestine; E11.9 Type 2 diabetes mellitus without complications; I25.10 Atherosclerotic heart disease of native coronary artery without angina pectoris; E66.01 Morbid (severe) obesity due to excess calories; I10 Essential (primary) hypertension; I70.8 Atherosclerosis of other arteries; K75.9 Inflammatory liver disease, unspecified; Z79.4 Long term (current) use of insulin; Z87.891 Personal history of nicotine dependence; Z68.29 Body mass index [BMI] 29.0-29.9, adult
CPT/HCPCS: 36415; 71045; 74018; 74176; 74177; 74181; 76001; 76705; 78226; 80048; 80053; 80074; 80202; 82140; 82150; 82962; 83690; 83735; 85007; 85025; 85027; 85610; 85730; 86850; 86900; 86901; 87077; 87186; 87205; 93005; 94761; 96361; 96374; C9113; J0330; J0690; J1100; J1815; J1885; J1956; J2250; J2405; J3490; Q9967